=== PATIENT | female | born 1960 | race Caucasian/White ===

== ENCOUNTER 2017-01-28 16:52 | Inpatient (IN) | payer OTHER ==
[~2017-01-28] VITALS: Ht 167.6 cm; Wt 56.7 kg
--- NOTE | ~2017-01-28 | EKG ---
[address] [address] ELECTROCARDIOGRAM REPORT Name: REE CHAVEZ Room #: 205- ADM IN M.R.#: [id number] Admission: 01/28/17 Attend Phys: David Liu MD Discharge: Date of : 60 Report #: [id number] THIS REPORT FOR: //name// [facility] Test Date: 2017-01-29 Test Time: 08:27:36 Pat Name: REE CHAVEZ Department: Room: 205 Gender: F Sightseeing Guide: ROXANA : 1960 Requested By: Gricelda Miranda Order Number: [id number] MD: Basil Ramey Measurements Intervals [place] Rate: 76 P: 42 [place]: 163 QRS: 63 QRSD: 92 T: 23 QT: 389 QTc: 438 Interpretive Statements Sinus rhythm Poor R wave progression No previous ECG available for comparison Electronically Signed On 01-29-2017 9:59:46 DOSIER OPERATOR by Basil Ramey [email or web address] <ELECTRONICALLY SIGNED> By: Basil Ramey MD, [facility] 01/29/17 0959 0827 0827 Basil Ramey MD, FAC /EPI
--- NOTE | ~2017-01-28 | H ---
[facility] [place] [address] HISTORY AND PHYSICAL Name: REE CHAVEZ Room #: 205-P ADM IN M.R.#: [id number] Admission: 01/28/17 Attend Phys: David Liu MD Discharge: Date of : 60 Report #: [id number] THIS REPORT FOR: //name// CC: Jon Rebollar DATE OF SERVICE: 01/28/2017 ATTENDING PHYSICIAN: Nani Templeton MD PRIMARY CARE PHYSICIAN: Gume Rebollar MD. CHIEF COMPLAINT: Chest pain. HISTORY OF PRESENT ILLNESS: The patient is a 56-year-old female, who denies any past medical history of coronary artery disease. She says for the last 3 or 4 days, she has been having some chest discomfort. She describes it as tightness in her chest, at times it will radiate into both arms and she states her arms feel heavy. The pain has not been worse with any activity and does occur at rest. She has been dealing with an upper respiratory infection since the end of December. At that time, she initially started Z-Adam. She continues to have a mild cough with some clear sputum production. She says she still feels congested in her head. Denies any fevers. She reports that her chest pain became more constant today, so she went into the ER at [facility]. She said her pain was letting up before she even got to the ER. She did receive a nitroglycerin there and her chest pain is currently resolved. She was evaluated and noted to have a bumped troponin level, so she was transferred to [facility] as a direct admission for further cardiac evaluation. She denies any prior cardiac testing. PAST MEDICAL HISTORY: Lupus. PAST SURGICAL HISTORY: Hysterectomy, bilateral knee replacement. ALLERGIES: LATEX, PENICILLIN and IBUPROFEN. HOME MEDICATIONS: Loratadine 10 mg p.o. daily, sulfasalazine 500 mg t.i.d., Plaquenil 200 mg b.i.d., tizanidine 4 mg at bedtime, hydrocodone 5/325 one tab q.4 hours p.r.n. pain, potassium 10 mEq daily, omeprazole 20 mg daily, prednisone 5 mg every other day and vitamin D 1000 units daily. SOCIAL HISTORY: The patient smokes one-half to one pack of cigarettes per day. She has been smoking for about 40 years. Denies any alcohol or drug use. She lives with her boyfriend, she is on disability. FAMILY HISTORY: Her father is alive at the age of 77 with prior heart problems [address] [address] HISTORY AND PHYSICAL Name: REE CHAVEZ Room #: 205-P [facility] IN M.R.#: [id number] Admission: 01/28/17 Attend Phys: David Liu MD Discharge: Date of : 60 Report #: [id number] including an MT and a prior CABG. He does have a defibrillator. Her mother is alive and healthy. REVIEW OF SYSTEMS: Twelve-point review of systems was reviewed with the patient, otherwise negative unless stated in the HPI. PHYSICAL EXAMINATION: GENERAL: The patient is an alert female, in no acute distress. VITAL SIGNS: Temperature is 36.7, heart rate 83, respirations 18, blood pressure is 112/72, oxygen 99% on 2 liters O2. HEENT: PERRLA. Sclerae is nonicteric. Oral mucosa is pink and moist. She is edentulous. NECK: Supple, no JVD noted. CARDIAC: Normal S1, S2. No murmurs, rubs or gallops. RESPIRATORY: Breath sounds are clear bilaterally. No wheezing, no rhonchi. She does have a few crackles in the right lower lobe, breathing is nonlabored. ABDOMEN: Soft, round, nontender, nondistended with positive bowel sounds. VASCULAR: No edema noted. Pedal pulses are 2+. NEUROLOGIC: The patient is alert and oriented x 3. Speech is clear. She is answering questions appropriately and following commands. No focal neuro deficits. LABORATORY DATA AND DIAGNOSTICS: WBC 8.7, hemoglobin 12.6, platelets 280. Sodium 139, potassium 3.7, BUN 11, creatinine 0.7, glucose 87. LFTs are within normal limits. INR 1.0. Troponin is 0.29 and chest x-ray was negative. EKG showed normal sinus rhythm. ASSESSMENT AND PLAN: 1. Non-ST elevation myocardial infarction. The patient is currently chest pain free. She was started on heparin drip in [facility]. We will continue heparin drip per protocol. Cardiology is consulted. Repeat serial cardiac enzymes and continue to monitor on telemetry. Continue aspirin daily. 2. Lupus. Continue with prednisone and Plaquenil as at home. 3. Tobacco abuse. The patient has been advised to quit. 3. Deep venous thrombosis prophylaxis. Place sequential compression devices and continue heparin drip. We will continue to follow the patient closely throughout the hospitalization and make changes based on clinical status. <ELECTRONICALLY SIGNED> By: WILDA Schaefer 01/30/17 1012 0523 0609 WILDA Schaefer /nt
--- NOTE | ~2017-01-28 | EKG ---
[address] [address] ELECTROCARDIOGRAM REPORT Name: REE CHAVEZ Room #: [facility] IN ..#: [id number] Admission: 01/28/17 Attend Phys: David Liu MD Discharge: 01/31/17 Date of : 60 Report #: [id number] THIS REPORT FOR: //name// [facility] Test Date: 2017-01-31 Test Time: 06:04:30 Pat Name: REE CHAVEZ Department: Room: [facility] Gender: F Ab Initio Etl Developer: JL : 1960 Requested By: Hector Gonsalves Order Number: [id number] MD: Sanjay Yanez Measurements Intervals [place] Rate: 74 P: 43 NM: 180 QRS: 63 QRSD: 94 T: 11 QT: 387 QTc: 430 Interpretive Statements Sinus rhythm Probable left atrial enlargement Compared to ECG 01/30/2017 13:00:17 No significant changes Electronically Signed On 01-31-2017 13:25:51 PENSION EXAMINER by Sanjay Yanez [email or web address] <ELECTRONICALLY SIGNED> By: Sanjay Yanez MD 01/31/17 1325 0604 0604 Sanjay Yanez MD /CATE
--- NOTE | ~2017-01-28 | EKG ---
[address] [address] ELECTROCARDIOGRAM REPORT Name: SCOTTREE Smith Room #: 205- ADM IN M.R.#: [id number] Admission: 01/28/17 Attend Phys: David Liu MD Discharge: Date of : 60 Report #: [id number] THIS REPORT FOR: //name// [facility] Test Date: 2017-01-30 Test Time: 13:00:17 Pat Name: REE CHAVEZ Department: Room: 205 Gender: F Enrobing Machine Operator: Lance MCNAIR : 1960 Requested By: Sanjay Yanez Order Number: [id number] MD: Measurements Intervals [place] Rate: 76 P: 34 [place]: 169 QRS: 62 QRSD: 90 T: 14 QT: 387 QTc: 436 Interpretive Statements Sinus rhythm Borderline low voltage, extremity leads Compared to ECG 01/29/2017 08:27:36 Poor R-wave progression no longer present [email or web address] By: 1300 [facility] Epiphany EpiphMD fabian /EPI
--- NOTE | ~2017-01-28 | 2DMMODE ---
[facility] [address] [place] [place] [address] 2 D/M-MODE ECHOCARDIOGRAM Name: COLIN CHAVEZCortes Smith Room #: 205-P [facility] IN ..#: [id number] Admission: 01/28/17 Attend Phys: David Liu MD Discharge: Date of : 60 Date of Service: 01/30/17 1502 Report #: [id number] THIS REPORT FOR: //name// APPROVED REPORT Study performed: 01/30/2017 13:54:39 EXAM: Comprehensive 2D, Doppler, and color-flow Echocardiogram Patient Location: Bedside Room #: [facility] Status: routine BSA: 1.64 HR: 79 bpm BP: 94/54 mmHg Rhythm: NSR Other Information Study Quality: Adequate/patient on bedrest Indications NSTEMI status post stent to RCA. LV function. 2D Dimensions RVDd: 30.79 mm LVEF(%): 45.12 (>50%) IVSd: 10.10 (7-11mm) LVOT Diam: 20.24 (18-24mm) LVDd: 47.54 mm PWd: 11.15 (7-11mm) Ascending Ao: 30.95 (22-36mm) LVDs: 36.89 (25-40mm) Aortic Root: 35.99 mm Velasquez's LVEF: 45.12 % Volumes Left Atrial Volume (Systole) Single Plane 4CH: 16.04 mL Aortic Valve AoV Peak Jose Angel.: 0.96 m/s AO Peak Gr.: 3.69 mmHg LVOT Max P.87 mmHg LVOT Max V: 0.85 m/s LILIANE Vmax: 2.84 cm2 Mitral Valve E/A Ratio: 0.8 MV Decel. Time: 287.32 ms MV E Max Jose Angel.: 0.39 m/s [facility] [address] [place] [address] 2 D/M-MODE ECHOCARDIOGRAM Name: REE CHAVEZ Sarah Room #: 205-P [facility] IN .R.#: [id number] Admission: 01/28/17 Attend Phys: David Liu MD Discharge: Date of : 60 Date of Service: 01/30/17 1502 Report #: [id number] MV A Jose Angel.: 0.49 m/s MV PHT: 83.32 ms IVRT: 147.64 ms Pulmonary Valve PV Peak Jose Angel.: 0.96 m/s PV Peak Gr.: 3.69 mmHg Pulmonary Vein P Vein S: 0.49 m/s P Vein D: 0.34 m/s P Vein S/D Ratio: 1.44 Tricuspid Valve RAP Estimate: 5.00 mmHg Left Ventricle The left ventricle is normal size. There is hypokinesis in the inferior wall. There is normal left ventricular wall thickness. Left ventricular systolic function is mild to moderately decreased. LVEF is 40-45%. Mild diastolic dysfunction is present (impaired relaxation pattern). Right Ventricle The right ventricle is normal size. The right ventricular systolic function is normal. Atria The left atrium size is normal. The right atrium size is normal. Aortic Valve Aortic valve leaflets are mildly thickened. Trace aortic regurgitation. There is no aortic valvular stenosis. Mitral Valve The mitral valve is normal in structure. Mild mitral regurgitation. Tricuspid Valve The tricuspid valve is normal in structure. Trace tricuspid regurgitation. Unable to assess PA pressure. Pulmonic Valve The pulmonary valve is normal in structure. Trace pulmonic regurgitation. [facility] [address] [place] [address] 2 D/M-MODE ECHOCARDIOGRAM Name: REE CHAVEZ Room #: [facility] IN ..#: [id number] Admission: 01/28/17 Attend Phys: David Liu MD Discharge: Date of : 60 Date of Service: 01/30/17 1502 Report #: [id number] Great Vessels Aortic root measures at the upper limits of normal. The ascending aorta is normal in size. IVC is normal in size and collapses >50% with inspiration. Pericardium Small anterior pericardial effusion. <Conclusion> The left ventricle is normal size. Left ventricular systolic function is mild to moderately decreased. Mild diastolic dysfunction is present (impaired relaxation pattern). The right ventricle is normal size. The left atrium size is normal. Trace aortic regurgitation. Mild mitral regurgitation. Trace tricuspid regurgitation. <ELECTRONICALLY SIGNED> By: Hector Gonsalves MD 01/30/171501 01 01 Hector Gonsalves MD /INF
--- NOTE | ~2017-01-28 | CATHLAB ---
[facility] [address] [place] [address] INVASIVE PROCEDURE REPORT Name: REE CHAVEZ Room #: 205-P ADM IN ..#: [id number] Admission: 01/28/17 Attend Phys: David Liu MD Discharge: Date of : 60 Date of Service: 01/30/17 1508 Report #: [id number] THIS REPORT FOR: //name// APPROVED REPORT Patient Details Patient Status: In-Patient Room #: The patient is a 56 year-old female Event Personnel Hector Gonsalves Family Medicine Physician, Armando Nesbitt RN, Cyn Gonzales Monitor, Adis Holland Procedures Performed Art Access - R femoral artery* 63220 Initial Mod Sed Same Phys/QHP Gr5y 327066 82794 Mod Sed Same Phys/QHP Ea 002533 Left Heart Cath w/or w/o Coronaries [id number] [facility] w/wo Plasty Single RCA 370834 Hemostasis w/ Mynx Indication Non-STEMI , Dyspnea, Positive stress test, Chest pain Risk Factors Family History, Hypercholesterolemia, Hypertension, Tobacco History () Procedure Narrative The Right Groin^ was infiltrated with 1% Lidocaine subcutaneous anesthesia. A PINNACLE 4FR Sheath #[id number] sheath was inserted into the RFA^. Coronary angiography was performed using coronary diagnostic catheters. The right coronary system was accessed and visualized with a JR 4 catheter. The left coronary system was accessed and visualized with a JL 4 catheter. The left ventricle was accessed and visualized with a Pigtail catheter. Left ventricular/Aortic Valve gradient assessed via catheter pullback. Left ventriculogram was performed in JEROME projection. Pre-demployment femoral angiogram was performed . Closure device was deployed with a 6 Fr Mynx. The patient tolerated the procedure well and there were no complications associated with the procedure. There was no hematoma. Intraoperative Conscious Sedation Sedation start time: 10:53 Case end Time: 11:29 Versed 1.5 mg [facility] [address] [place] [address] INVASIVE PROCEDURE REPORT Name: REE CHAVEZ Room #: 205-P [facility] IN [facility]#: [id number] Admission: 01/28/17 Attend Phys: David Liu MD Discharge: Date of : 60 Date of Service: 01/30/17 1508 Report #: [id number] Fluoro Time: 5.41 minutes Dose: DAP 4113.50 cGycm2 541 mGy Contrast Type and Amount: Omnipaque 150 ml Coronary Angiography The patient's coronary anatomy is right dominant. Diagnostic Cath Left Main Patent vessel, no flow limiting lesions. LAD Calcified proximal segment with mild diffuse disease, 30%. There is a mild focal stenosis in the mid segment, 30%. Circumflex Patent vessel, supplies 2 obtuse marginal arteries. OM1 Moderate size caliber vessel, with a moderate stenosis in the proximal segment, 50%. OM2 Small-caliber vessel, with no flow-limiting lesions. Right Coronary Dominant vessel with a severe occlusion in the mid segment, 90%. R PDA Patent vessel, no flow limiting lesions. RPLV Patent vessel, no flow limiting lesions. Left Ventriculography The left ventricle is normal in size with decreased contractility. The left ventricular ejection fraction is estimated to be 40%. Left ventricular wall motion abnormalities are present. There is hypokinesis of the inferior segment. Hemodynamics The aortic pressure is 109/66 mmHg with a mean of 85 mmHg. The left ventricular pressure is 120/8 mmHg with a mean of mmHg. The left ventricular end diastolic pressure is 19 mmHg. PCI Technique Lesion Anticoagulation was achieved with Angiomax. Patient was preloaded with Plavix. Percutaneous coronary intervention was performed on the mid right coronary artery. The lesion stenosis prior to intervention was 90% with AUGUSTUS 3 flow. A VISTA 6FR JR 4 #[id number] Guide Catheter was used to engage the JR 4 ostium. A Luge Wire .014 x 182CM #[id number] Interventional Guidewire was used to cross the lesion. BALLOON DILATION A Balloon catheter Euphora RX 2.5 x 12 #[id number] was inserted and inflated up to 6.00atm for 10seconds. Additional Inflation: 10.00atm for 23seconds. [facility] [address] [place] [address] INVASIVE PROCEDURE REPORT Name: COLIN CHAVEZCortes Smith Room #: 205-P [facility] IN .R.#: [id number] Admission: 01/28/17 Attend Phys: David Liu MD Discharge: Date of : 60 Date of Service: 01/30/17 1508 Report #: [id number] STENT DEPLOYMENT A drug-eluting stent RESOLUTE RX 2.75 X 14 #[id number] was inserted and inflated up to 10.00atm for 25seconds. POST STENT DEPLOYMENT BALLOON DILATION A Balloon catheter Mozec 3.0 x 8 was inserted and inflated up to 18.00atm for 22seconds. Additional Inflation: 16.00atm for 14seconds. Final angiography reveals 0 % stenosis with AUGUSTUS 3 flow. Conclusion 1. Successful insertion of a drug-eluting stent into the mid RCA occlusion. 2. Moderate disease in OM1. 3. Moderate segmental LV dysfunction. 4. Recommend dual antiplatelet therapy. Recommendations Smoking Cessation <ELECTRONICALLY SIGNED> By: Hector Gonsalves MD 01/30/17 1508 1508 1508 Hector Gonsalves MD /INF
--- NOTE | ~2017-01-28 | EKG ---
[address] [address] ELECTROCARDIOGRAM REPORT Name: REE CHAVEZ Room #: 205- ADM IN M.R.#: [id number] Admission: 01/28/17 Attend Phys: David Liu MD Discharge: Date of : 60 Report #: [id number] THIS REPORT FOR: //name// [facility] Test Date: 2017-01-30 Test Time: 13:00:17 Pat Name: REE CHAVEZ Department: Room: 205 Gender: F Optician Manager: Lance MCNAIR : 1960 Requested By: Hector Gonsalves Order Number: [id number] MD: Sanjay Yanez Measurements Intervals [place] Rate: 76 P: 34 [place]: 169 QRS: 62 QRSD: 90 T: 14 QT: 387 QTc: 436 Interpretive Statements Sinus rhythm Borderline low voltage, extremity leads Compared to ECG 01/29/2017 08:27:36 Poor R-wave progression no longer present Electronically Signed On 01-30-2017 21:19:03 RIGGING SLINGER by Sanjay Yanez [email or web address] <ELECTRONICALLY SIGNED> By: Sanjay Yanez MD 01/30/179 1300 1300 Sanjay Yanez MD /CATE
[2017-01-28 19:54] VITALS: BP 112/72
[2017-01-28 20:49] LABS: HEMOGLOBIN 12.6 gm/dL (12.0-15.0); MCH 30.5 pg (26.0-34.0); MCHC 33.3 g/dL (28.0-37.0); MCV 91.6 fL (80.0-100.0); RBC 4.15 mil/uL (4.20-5.00); RDW 13.1 % (10.5-14.5); WBC 8.7 thou/uL (4.0-11.0)
[2017-01-28 21:02] LABS: PROTIME 10.3 Seconds (9.3-11.4)
[2017-01-28] MEDS ORDERED: HYDROCODONE-AP1 EAC6 PO (22:39)
[2017-01-28] MEDS ORDERED: ZANAFLEX4 MG PO (22:40)
[2017-01-28] MEDS ORDERED: PREDNISONE 5 MG5 M1 PO (22:41)
[2017-01-28] MEDS ORDERED: SULFASALAZINE500 M5 PO (22:42)
[2017-01-28] MEDS ORDERED: KLOR-CON 1010 MEQ PO (22:43)
[2017-01-28] MEDS ORDERED: HYDROXYCHLOROQ200 M1 PO (22:44)
[2017-01-28] MEDS ORDERED: LORATIDINE 10 M10 M1 PO (22:45)
[2017-01-28] MEDS ORDERED: ACID REDUCER20 M1 PO (22:48)
[2017-01-28] MEDS ORDERED: VITAMIN D1000 UNI1 PO (22:49)
[2017-01-28 23:58] VITALS: BP 112/61
[2017-01-29 03:40] VITALS: BP 97/61
[2017-01-29 04:03] LABS: ANION GAP 9 mmol/L (7-16); BUN 11 mg/dL (7-18); CHLORIDE 104 mmol/L (98-107); CHOLESTEROL 193 mg/dL (<200); CO2 27 mmol/L (21-32); CREATININE 0.6 mg/dL (0.6-1.0); GLUCOSE 88 mg/dL (74-106); HDL CHOLESTEROL 38 mg/dL (>40); LDL CHOLESTEROL 126 mg/dL (<100); SODIUM 140 mmol/L (136-145); TC:HDL 5.1 Ratio (Not establshd); TRIGLYCERIDE 149 mg/dL (<150); TROPONIN-I 0.45 ng/mL (<0.06); VLDL 30 mg/dL (<40)
[2017-01-29 04:08] LABS: SERUM ASSESSMENT Clear
[2017-01-29 07:43] VITALS: BP 101/58
[2017-01-29 11:13] VITALS: BP 103/63
[2017-01-29 15:19] VITALS: BP 94/57
[2017-01-29 16:36] VITALS: BP 94/57
[2017-01-29 20:04] VITALS: BP 91/54
[2017-01-30] VITALS (12 sets, daily range): BP systolic 94–113; BP diastolic 54–85
[2017-01-31 00:18] VITALS: BP 81/50
[2017-01-31 01:30] VITALS: BP 81/50
[2017-01-31 03:48] VITALS: BP 106/72
[2017-01-31 03:50] LABS: HEMATOCRIT 34.9 % (37.0-47.0); HEMOGLOBIN 11.6 gm/dL (12.0-15.0); MCH 30.6 pg (26.0-34.0); MCHC 33.2 g/dL (28.0-37.0); MCV 92.1 fL (80.0-100.0); RBC 3.79 mil/uL (4.20-5.00); RDW 12.9 % (10.5-14.5)
[2017-01-31 04:23] LABS: CALCIUM 9.1 mg/dL (8.5-10.1); CREATININE 0.9 mg/dL (0.6-1.0); POTASSIUM 4.1 mmol/L (3.5-5.1); TROPONIN-I 0.1 ng/mL (<0.06)
[2017-01-31 04:39] VITALS: BP 106/72
[2017-01-31 07:20] VITALS: BP 97/64
[2017-01-31] MEDS ORDERED: CLOPIDOGREL75 MG PO (08:32)
[2017-01-31] MEDS ORDERED: METOPROLOL SUCC25 M1 PO (08:32)
[2017-01-31] MEDS ORDERED: LIPITOR40 MG PO (08:32)
[2017-01-31] MEDS ORDERED: ASPIRIN325 PO (08:39)
== END 2017-01-31 10:53 | disposition home or self-care (01) | DRG 247 ==
LOC: 2N 16:52 → ENTRNSPT 01-31 10:26 → EDTRNSPTSTS 01-31 10:29 → CMPTRNSPT 01-31 10:46 → 2N 01-31 10:53
PROVIDERS: Internal Medicine Cardiovascular Disease; Nurse Practitioner Acute Care
PROC: 4A023N7 Measurement of Cardiac Sampling and Pressure, Left Heart, Percutaneous Approach (ICD-10-PCS; principal; 2017-01-30)
PROC: 027034Z Dilation of Coronary Artery, One Artery with Drug-eluting Intraluminal Device, Percutaneous Approach (ICD-10-PCS; 2017-01-30)
PROC: B2111ZZ Fluoroscopy of Multiple Coronary Arteries using Low Osmolar Contrast (ICD-10-PCS; 2017-01-30)
PROC: B2151ZZ Fluoroscopy of Left Heart using Low Osmolar Contrast (ICD-10-PCS; 2017-01-30)
DX: I21.4 Non-ST elevation (NSTEMI) myocardial infarction (principal); I25.10 Atherosclerotic heart disease of native coronary artery without angina pectoris; Z96.653 Presence of artificial knee joint, bilateral; M32.9 Systemic lupus erythematosus, unspecified; F17.210 Nicotine dependence, cigarettes, uncomplicated; M54.9 Dorsalgia, unspecified; G89.29 Other chronic pain; K21.9 Gastro-esophageal reflux disease without esophagitis; E78.5 Hyperlipidemia, unspecified; I25.5 Ischemic cardiomyopathy; E78.00 Pure hypercholesterolemia, unspecified; Z90.710 Acquired absence of both cervix and uterus; Z88.0 Allergy status to penicillin; Z88.1 Allergy status to other antibiotic agents; Z91.040 Latex allergy status
CPT/HCPCS: 10081

== ENCOUNTER → 2017-06-30 | Outpatient (CLI) | payer OTHER ==
[~2017-06-30] MED LIST: ACID REDUCER20 M1 PO; ASPIRIN325 PO; CLOPIDOGREL75 MG PO; HYDROCODONE-AP1 EAC6 PO; HYDROXYCHLOROQ200 M1 PO; KLOR-CON 1010 MEQ PO; LIPITOR40 MG PO; LORATIDINE 10 M10 M1 PO; METOPROLOL SUCC25 M1 PO; PREDNISONE 5 MG5 M1 PO; SULFASALAZINE500 M5 PO; VITAMIN D1000 UNI1 PO; ZANAFLEX4 MG PO
--- NOTE | ~2017-06-30 | 2DMMODE ---
[facility] [place] [address] 2 D/M-MODE ECHOCARDIOGRAM Name: SHABNAM CHAVEZIAIN Smith Room #: [facility]#: [id number] Admission: 06/30/17 Attend Phys: Hector Gonsalves MD Discharge: Date of : 60 Date of Service: 06/30/17 1207 Report #: [id number] THIS REPORT FOR: //name// APPROVED REPORT Study performed: 06/30/2017 10:12:18 EXAM: Comprehensive 2D, Doppler, and color-flow Echocardiogram Patient Location: Echo lab Status: routine BSA: 1.64 HR: 71 bpm BP: 112/73 mmHg Other Information Study Quality: Adequate Indications CAD 2D Dimensions RVDd: 20.69 mm LVEF(%): 56.16 (>50%) IVSd: 8.95 (7-11mm) LVOT Diam: 22.09 (18-24mm) LVDd: 46.34 mm PWd: 10.61 (7-11mm) Ascending Ao: 29.43 (22-36mm) LVDs: 32.78 (25-40mm) Aortic Root: 34.61 mm IVC: 13.00 mm Velasquez's LVEF: 56.16 % Volumes Left Atrial Volume (Systole) Single Plane 4CH: 21.78 mL Single Plane 2CH: 17.23 mL LA ESV Index: 14.00 mL/m2 Aortic Valve AoV Peak Jose Angel.: 1.18 m/s AO Peak Gr.: 5.58 mmHg LVOT Max P.34 mmHg LVOT Max V: 0.91 m/s LILIANE Vmax: 2.96 cm2 Mitral Valve E/A Ratio: 0.9 MV Decel. Time: 324.56 ms MV E Max Jose Angel.: 0.49 m/s [facility] [place] [address] 2 D/M-MODE ECHOCARDIOGRAM Name: REE CHAVEZ Room #: [facility]#: [id number] Admission: 06/30/17 Attend Phys: Hector Gonsalves MD Discharge: Date of : 60 Date of Service: 06/30/17 1207 Report #: [id number] MV A Jose Angel.: 0.54 m/s MV PHT: 94.12 ms IVRT: 121.11 ms Pulmonary Valve PV Peak Jose Angel.: 0.90 m/s PV Peak Gr.: 3.27 mmHg Pulmonary Vein P Vein S: 0.42 m/s P Vein A: 0.27 m/s P Vein D: 0.41 m/s P Vein A Dur.: 100.3 msec P Vein S/D Ratio: 1.02 Tricuspid Valve RAP Estimate: 5.00 mmHg Left Ventricle The left ventricle is normal size. There is normal left ventricular wall thickness. The left ventricular systolic function is normal. The left ventricular ejection fraction is within the normal range. LVEF is 55%. Mild diastolic dysfunction is present (impaired relaxation pattern). Right Ventricle The right ventricle is normal size. The right ventricular systolic function is normal. Atria The left atrium size is normal. The right atrium size is normal. Aortic Valve Mild aortic valve sclerosis. No aortic regurgitation is present. There is no aortic valvular stenosis. Mitral Valve The mitral valve is normal in structure. Trace to mild mitral regurgitation. No evidence of mitral valve stenosis. Tricuspid Valve The tricuspid valve is normal in structure. Trace tricuspid regurgitation. Unable to assess PA pressure. Pulmonic Valve The pulmonary valve is normal in structure. Trace pulmonic regurgitation. [facility] [address] [place] [address] 2 D/M-MODE ECHOCARDIOGRAM Name: REE CHAVEZ Room #: [facility]#: [id number] Admission: 06/30/17 Attend Phys: Hector Gonsalves MD Discharge: Date of : 60 Date of Service: 06/30/17 1207 Report #: [id number] Great Vessels The aortic root is normal in size. IVC is normal in size and collapses >50% with inspiration. <Conclusion> The left ventricle is normal size. There is normal left ventricular wall thickness. The left ventricular systolic function is normal. Mild diastolic dysfunction is present (impaired relaxation pattern). The right ventricle is normal size. The left atrium size is normal. Mild aortic valve sclerosis. Trace to mild mitral regurgitation. Trace tricuspid regurgitation. <ELECTRONICALLY SIGNED> By: Hector Gonsalves MD 06/30/171206 06 06 Hector Gonsalves MD /INF
== END ==
LOC: CV 09:52
DX: I25.10 Atherosclerotic heart disease of native coronary artery without angina pectoris (principal)

== ENCOUNTER → 2018-02-23 | Outpatient (CLI) | payer OTHER | LOC: RAD 12:26 | DX: R06.00 Dyspnea, unspecified (principal) ==

== ENCOUNTER → 2018-09-03 | Outpatient (CLI) | payer OTHER | LOC: NUC 09:51 | DX: I25.119 Atherosclerotic heart disease of native coronary artery with unspecified angina pectoris (principal); I25.2 Old myocardial infarction; E78.5 Hyperlipidemia, unspecified; Z79.899 Other long term (current) drug therapy; Z88.8 Allergy status to other drugs, medicaments and biological substances; Z88.0 Allergy status to penicillin; Z91.040 Latex allergy status; Z87.891 Personal history of nicotine dependence ==

== ENCOUNTER → 2019-03-04 | Outpatient (CLI) | payer OTHER | LOC: SJCVC 14:42 | DX: I25.10 Atherosclerotic heart disease of native coronary artery without angina pectoris (principal); I10 Essential (primary) hypertension; E78.00 Pure hypercholesterolemia, unspecified; K21.9 Gastro-esophageal reflux disease without esophagitis; I25.2 Old myocardial infarction; F17.200 Nicotine dependence, unspecified, uncomplicated; Z79.899 Other long term (current) drug therapy ==